=== PATIENT | male | born 1970 | race Caucasian/White ===

== ENCOUNTER 2018-02-25 02:13 | Inpatient (IN) ==
[2018-02-25] MEDS ORDERED: Sod Chloride 0.9% Inj 1,000 ML IV.SIG ONE (02:32)
[2018-02-25] MEDS ORDERED: Pantoprazole Inj 80 MG in Sodium Chlor 0.9% Inj 35 ML IV.SIG ONE (02:32)
[2018-02-25] MEDS ORDERED: Morphine Inj 4 MG/ML Vial IV.PUSH ONE (02:32)
--- NOTE | 2018-02-25 02:52 | ED ---
HPI General Chief complaint: Abdominal Pain Stated complaint: Nausea Time Seen by Provider: 02/25/18 02:31 Source: patient and EMS Mode of arrival: EMS Limitations: no limitations History of Present Illness HPI narrative: The patient is a 47 year old male who presents to the [facility] emergency department with a history of abdominal pain that began 2 hours prior to arrival. The patient reports that the pain is generalized and sharp in character. He reports that it has been constant since onset. He reports that he has had similar pain in the past intermittently for the last 2 years. He reports that in the past he has had it approximately 3-4 times to the severity. He reports that he has had evaluations done in the past and was diagnosed with acid reflux. He reports that he last had endoscopy 2-1/2 years ago. The patient reports that with this pain he had vomiting that consisted of blood 4-5 times prior to arrival. The patient reports having a past medical history significant for sarcoidosis, chronic back pain, acid reflux, and an abdominal aortic aneurysm diagnosed 4 months ago that was 4.5 cm at that time. He denies having any diarrhea. He reports that he has been moving his bowels regularly. He denies having any blood in his stool or black or tarry stools. On review of systems otherwise, the patient denies having any known fevers, worsening cough or congestion, neck pain,urinary symptoms, or neurologic symptoms. The patient reports that he has chronic shortness of breath related to sarcoidosis. The patient reports that with the abdominal pain he also began to have chest pain. He denies any history of coronary artery disease. Related Data Home Medications Medication Instructions Recorded Confirmed albuterol sulfate 2.5 mg INHALATION Q4H PRN 02/25/18 02/25/18 albuterol sulfate [Ventolin HFA] 2 puff INHALATION Q4H PRN 02/25/18 02/25/18 azathioprine 50 mg PO DAILY 02/25/18 02/25/18 benazepril 20 mg PO DAILY 02/25/18 02/25/18 diclofenac sodium 75 mg PO BID 02/25/18 02/25/18 duloxetine [Cymbalta] 20 mg PO BID 02/25/18 02/25/18 ezetimibe 10 mg PO DAILY 02/25/18 02/25/18 famotidine 40 mg PO DAILY 02/25/18 02/25/18 hydrochlorothiazide 25 mg PO DAILY 02/25/18 02/25/18 hydrocodone-acetaminophen [[place]] 1 tab PO Q4-6H PRN 02/25/18 02/25/18 hydroxychloroquine [Plaquenil] 200 mg PO DAILY 02/25/18 02/25/18 indacaterol-glycopyrrolate 1 cap INHALATION BID 02/25/18 02/25/18 [Utibron Neohaler] metoprolol succinate 12.5 mg PO BID 02/25/18 02/25/18 nortriptyline 25 mg PO DAILY 02/25/18 02/25/18 promethazine 25 mg PO Q12HR PRN 02/25/18 02/25/18 simvastatin 40 mg PO QPM 02/25/18 02/25/18 topiramate 100 mg PO BID 02/25/18 02/25/18 trazodone 50 mg PO DAILY 02/25/18 02/25/18 Allergies Allergy/AdvReac Type Severity Reaction Status Date / Time No Known Allergies Allergy Unverified 02/25/18 02:20 Review of Systems ROS: all other systems reviewed are negative PENDING SALE TO [facility] Medical History Medical History AAA (abdominal aortic aneurysm) (Acute) Sarcoidosis of lung (Acute) GERD (gastroesophageal reflux disease) (Acute) Hypertension (Acute) Social History Social History Substance History: No History of Abuse Smoking Status: Former smoker How Often Do You Have a Drink Containing Alcohol: Monthly or less Immunization History Tetanus Immunization: Unsure Exam Const General: cooperative, no acute distress and well developed Nutritional Appearance: well nourished Orientation: alert, awake and oriented x3 HENMT Head: normocephalic and atraumatic Nose: no nasal discharge and no epistaxis Mouth: moist mucous membranes Throat: posterior oropharynx normal and uvula midline Eyes Sclera: normal sclerae Pupils: PERRL Neck Neck: no meningeal signs, trachea midline and no JVD Resp Effort & Inspection: no use of accessory muscles Auscultation: clear to auscultation bilaterally Cardio Rate: regular rate Rhythm: regular rhythm Heart Sounds: no gallops, no murmurs and no rubs GI Inspection: distended and obesity Palpation: soft, no hepatosplenomegaly and tender in the epigastrum, in the RUQ and periumbilically; not in the LLQ, not in the RLQ, not in the LUQ, not at McBurney's point, not suprapubicly, Marrero's sign negative and with no rebound tenderness Auscultation: normal bowel sounds Back/Spine/Pelvis Back: no CVA tenderness Skin General: dry skin (warm) Neuro General: alert, awake, oriented x3 and other (Grossly nonfocal.) Speech: speech normal Motor: no movement abnormalities noted Extrem General: normal to inspection (No calf tenderness on palpation. 2+ pulses in all 4 extremities.), no clubbing, no cyanosis and no edema Psych Mood: congruent mood Affect: normal affect Judgment: judgment good Course Initial Documented Vital Signs Temperature 98.5 F 02/25/18 02:20 Pulse Rate 92 H 02/25/18 02:20 Respiratory Rate 02/25/18 02:20 Blood Pressure 132/64 02/25/18 02:20 Pulse Oximetry 98 02/25/18 02:20 Last Documented Vital Signs Temperature 98.5 F 02/25/18 02:30 Pulse Rate 92 H 02/25/18 02:20 Respiratory Rate 02/25/18 02:20 Blood Pressure 132/64 02/25/18 02:20 Pulse Oximetry 98 02/25/18 04:28 Medical Decision Making MDM Narrative Medical decision making narrative: During the course of the patient's emergency department visit, the patient's history, examination, and differential diagnosis were reviewed with the patient. The patient was placed on a cardiac rehabilitation program director with oximetry and frequent blood pressure monitoring. The patient had IV access obtained and blood work sent for analysis. Diagnostic evaluation was started regarding the patient's abdominal pain, chest pain, and hematemesis. The patient was initially provided normal saline 1 L IV fluid bolus, Protonix 80 mg IV followed by a Protonix drip. The patient was given Zofran for nausea. The patient was given morphine for pain. The patient's diagnostic evaluation is remarkable for a white count of 16.1, normal hemoglobin of 13.9, normal platelets 294 with a normal differential. PT is 10.3, PTT 21, chemistries remarkable for a GFR of 66, glucose 126, calcium 8.2. Cardiac enzymes within normal limits, lactic acid is 1.8. Lipase of the is within normal limits, urinalysis shows 9 RBCs, few mucus otherwise unremarkable. A chest x-ray reveals mild interstitial prominence of undetermined chronicity, this could be related to the patient's history of sarcoidosis. CT scan of the abdomen and pelvis shows a mid small bowel obstruction. Mildly distended gallbladder. The patient's results were discussed with the patient, including the plan of care. I explained that further testing and/ or monitoring is indicated based on the patient's history, examination, and/ or laboratory findings. Therefore, I recommended admission for additional evaluation. The patient expressed understanding and was agreeable with this plan. The patient was admitted to the hospital in guarded condition and sent to a bed under the care of the [facility] service. Medical Screen Exam Complete: Yes Emergency Medical Condition: Yes Differential Diagnosis Differential Diagnosis: Hemorrhagic esophagitis, versus peptic ulcer bleed, versus variceal bleed, versus Gilma-Zarate tear versus Boerhaave's Medical Records Medical records reviewed: Yes I reviewed the patient's medical records. Lab Data Lab results reviewed: Yes I reviewed the patient's lab results. Result diagrams: 02/25/18 02:35 02/25/18 02:35 Lab Results 02/25/18 02/25/18 02/25/18 Range/Units 02:35 02:35 02:35 WBC 16.1 H (4.0-11.0) th/mm3 RBC 4.41 L (4.50-5.90) mil/mm3 Hgb 13.9 (13.0-17.0) gm/dL Hct 40.2 (39.0-51.0) % MCV 91.3 (80.0-100.0) fL MCH 31.5 (27.0-34.0) pg MCHC 34.4 (32.0-36.0) % RDW 12.5 (11.6-17.2) % Plt Count 294 (150-450) th/mm3 MPV 9.5 (7.0-11.0) fL Neut % (Auto) 62.7 (16.0-70.0) % Lymph % (Auto) 25.1 (9.0-44.0) % [place] % (Auto) 7.1 (0.0-8.0) % Eos % (Auto) 3.8 (0.0-4.0) % Baso % (Auto) 1.3 (0.0-2.0) % Neut # (Auto) 10.1 H (1.8-7.7) th/mm3 Lymph # (Auto) 4.0 (1.0-4.8) th/mm3 [place] # (Auto) 1.1 H (0.0-0.9) th/mm3 Eos # (Auto) 0.6 H (0.0-0.4) th/mm3 Baso # (Auto) 0.2 (0.0-0.2) th/mm3 WBC Differential . Differential Comment Auto diff final PT 10.3 (9.8-11.6) sec INR 1.0 Ratio APTT 21.0 L (24.3-30.1) sec Sodium 144 (136-145) meq/L Potassium 3.5 (3.5-5.1) meq/L Chloride 107 (98-107) meq/L Carbon Dioxide 27.8 (21.0-32.0) meq/L Anion Gap 9 (5-15) meq/L BUN 14 (7-18) mg/dL Creatinine 1.18 (0.60-1.30) mg/dL Estimated GFR 66 L (>89) mL/min Random Glucose 126 H (74-106) mg/dL Lactic Acid (0.4-2.0) mmol/L Calcium 8.2 L (8.5-10.1) mg/dL Total Bilirubin 0.3 (0.2-1.0) mg/dL AST 20 (15-37) U/L ALT 34 (12-78) U/L Alkaline Phosphatase 86 (45-117) U/L Total Creatine Kinase 88 (39-308) U/L Troponin I Less than 0.02 L (0.02-0.05) ng/mL Total Protein 7.4 (6.4-8.2) g/dL Albumin 3.9 (3.4-5.0) g/dL Lipase 96 (73-393) U/L Urine Color (Yellw/Straw) Urine Clarity (Clear) Urine pH (5.0-8.5) Ur Specific [place] (1.002-1.035) Urine Protein (Neg-Trace) mg/dL Urine Glucose (UA) (Negative) mg/dL Urine Ketones (Negative) mg/dL Urine Occult Blood (Negative) Urine Nitrate (Negative) Urine Bilirubin (Negative) Urine Urobilinogen (Less than 2) mg/dL Ur Leukocyte Esterase (Negative) Urine RBC (0-3) /hpf Urine WBC (0-5) /hpf Urine Mucus (Occasional) /lpf Micro UA Comment Ur Microscopic Review Urine Culture Comments 02/25/18 02/25/18 Range/Units 02:35 02:45 WBC (4.0-11.0) th/mm3 RBC (4.50-5.90) mil/mm3 Hgb (13.0-17.0) gm/dL Hct (39.0-51.0) % MCV (80.0-100.0) fL MCH (27.0-34.0) pg MCHC (32.0-36.0) % RDW (11.6-17.2) % Plt Count (150-450) th/mm3 MPV (7.0-11.0) fL Neut % (Auto) (16.0-70.0) % Lymph % (Auto) (9.0-44.0) % Treg[place] % (Auto) (0.0-8.0) % Eos % (Auto) (0.0-4.0) % Baso % (Auto) (0.0-2.0) % Neut # (Auto) (1.8-7.7) th/mm3 Lymph # (Auto) (1.0-4.8) th/mm3 [place] # (Auto) (0.0-0.9) th/mm3 Eos # (Auto) (0.0-0.4) th/mm3 Baso # (Auto) (0.0-0.2) th/mm3 WBC Differential Differential Comment PT (9.8-11.6) sec INR Ratio APTT (24.3-30.1) sec Sodium (136-145) meq/L Potassium (3.5-5.1) meq/L Chloride (98-107) meq/L Carbon Dioxide (21.0-32.0) meq/L Anion Gap (5-15) meq/L BUN (7-18) mg/dL Creatinine (0.60-1.30) mg/dL Estimated GFR (>89) mL/min Random Glucose (74-106) mg/dL Lactic Acid 1.8 (0.4-2.0) mmol/L Calcium (8.5-10.1) mg/dL Total Bilirubin (0.2-1.0) mg/dL AST (15-37) U/L ALT (12-78) U/L Alkaline Phosphatase (45-117) U/L Total Creatine Kinase (39-308) U/L Troponin I (0.02-0.05) ng/mL Total Protein (6.4-8.2) g/dL Albumin (3.4-5.0) g/dL Lipase (73-393) U/L Urine Color Yellow (Yellw/Straw) Urine Clarity Clear (Clear) Urine pH 7.0 (5.0-8.5) Ur Specific [place] 1.017 (1.002-1.035) Urine Protein Negative (Neg-Trace) mg/dL Urine Glucose (UA) Negative (Negative) mg/dL Urine Ketones Negative (Negative) mg/dL Urine Occult Blood Negative (Negative) Urine Nitrate Negative (Negative) Urine Bilirubin Negative (Negative) Urine Urobilinogen Less than 2 (Less than 2) mg/dL Ur Leukocyte Esterase Negative (Negative) Urine RBC 9 H (0-3) /hpf Urine WBC 1 (0-5) /hpf Urine Mucus Few H (Occasional) /lpf Micro UA Comment Culture not ind Ur Microscopic Review Not Reportable Urine Culture Comments Culture not ind Imaging Data Radiologist's impression: Abdomen/Pelvis CT 02/25/18 02:32 CONCLUSION: Mid small bowel obstruction. Chest X-Ray 02/25/18 02:32 CONCLUSION: Mild interstitial prominence of undetermined chronicity ECG Data Attestation: I personally reviewed and interpreted this ECG as follows: Interpretation: The patient had an EKG done on arrival that shows a sinus rhythm of 93, QRS duration is 93 ms, QTC [address] segment elevation. T waves are inverted in V1. Discharge Plan Discharge Disposition Patient Disposition: 30 Still Patient Discharge Details Diagnosis: GI bleed, SBO (small bowel obstruction) Physicians Team ED Provider: Minnie De La Garza Primary Care Provider: UNKNOWN, Attending Provider: Odilon Askew Other Providers: Antoni Euceda Discharge Interventions Interventions: ED Discharge Assessment Last Done: 02/25/18 05:48 Vital Signs Last Done: 02/25/18 02:30 Status ED Status: Admitted Observation Patient
[2018-02-25 02:55] LABS: Baso # (Auto) 0.2 th/mm3 (0.0-0.2); Baso % (Auto) 1.3 % (0.0-2.0); Eos # (Auto) 0.6 th/mm3 (0.0-0.4); Eos % (Auto) 3.8 % (0.0-4.0); Hematocrit 40.2 % (39.0-51.0); Hemoglobin 13.9 gm/dL (13.0-17.0); Lymph % (Auto) 25.1 % (9.0-44.0); Mean Corpuscular HGB Conc 34.4 % (32.0-36.0); Mean Corpuscular Hemoglobin 31.5 pg (27.0-34.0); Mean Corpuscular Volume 91.3 fL (80.0-100.0); Mean Platelet Volume 9.5 fL (7.0-11.0); Mono # (Auto) 1.1 th/mm3 (0.0-0.9); Mono % (Auto) 7.1 % (0.0-8.0); Neut # (Auto) 10.1 th/mm3 (1.8-7.7); Neut % (Auto) 62.7 % (16.0-70.0); Platelet Count 294 th/mm3 (150-450); Red Blood Count 4.41 mil/mm3 (4.50-5.90); Red Cell Distribution Width 12.5 % (11.6-17.2); White Blood Count 16.1 th/mm3 (4.0-11.0)
[2018-02-25 02:57] LABS: Bilirubin,Urine Negative (Negative); Clarity,Urine Clear (Clear); Color,Urine Yellow (Yellw/Straw); Glucose,Urine (UA) Negative (Negative); Leukocyte Esterase,Urine Negative (Negative); Mucus,Urine Few /lpf (Occasional); Nitrite,Urine Negative (Negative); Specific Gravity,Urine 1.017 (1.002-1.035)
[2018-02-25 03:05] LABS: Alanine Aminotransferase 34 U/L (12-78); Albumin 3.9 g/dL (3.4-5.0); Anion Gap 9 meq/L (5-15); Aspartate Aminotransferase 20 U/L (15-37); Blood Urea Nitrogen 14 mg/dL (7-18); Calcium 8.2 mg/dL (8.5-10.1); Carbon Dioxide 27.8 meq/L (21.0-32.0); Chloride 107 meq/L (98-107); Glomerular Filtration Rate 66 mL/min (>89); Glucose,Random 126 mg/dL (74-106); Lipase 96 U/L (73-393); Potassium 3.5 meq/L (3.5-5.1); Sodium 144 meq/L (136-145)
[2018-02-25 03:09] LABS: Alkaline Phosphatase 86 U/L (45-117); Total Protein 7.4 g/dL (6.4-8.2)
[2018-02-25 03:12] LABS: Prothrombin Time 10.3 sec (9.8-11.6)
[2018-02-25 03:37] LABS: Creatine Kinase 88 U/L (39-308)
[2018-02-25] MEDS: Pantoprazole Inj 80 MG in Sodium Chlor 0.9% Inj 100 ML IV.CONT SCH ×2 (05:24→21:14)
[2018-02-25 07:34] LABS: Hematocrit 35.8 % (39.0-51.0); Hemoglobin 12.3 gm/dL (13.0-17.0)
[2018-02-25] MEDS ORDERED: Succinylcholine Inj 100 MG/5 ML Syringe IV.PUSH ONE (14:05)
[2018-02-25] MEDS ORDERED: Lidocaine PF 1% Inj 5 ML Syringe OTHER ONE (14:05)
[2018-02-25] MEDS ORDERED: Diatrizoate Meglum/Diatrizoate Sod Liq 120 ML Bottle (for RAD diag) PO ONE (17:08)
[2018-02-25 19:42] LABS: Hematocrit 37.9 % (39.0-51.0); Hemoglobin 12.9 gm/dL (13.0-17.0)
--- NOTE | 2018-02-25 20:25 | ECG ---
Date Performed: 02/25/2018 Time Performed: 02:24:17 PTAGE: 47 years EKG: Sinus rhythm NORMAL ECG NO PREVIOUS TRACING DOCTOR: Yifan Horton Interpretating Date/Time 02/25/2018 20:24:33
[2018-02-25] MEDS ORDERED: GLYCOPYRROLATE INHALATION SCH (21:00)
[2018-02-25] MEDS ORDERED: INDACATEROL INHALATION SCH (21:00)
[2018-02-25] MEDS: Topiramate 100 MG Tablet PO SCH (21:13)
[2018-02-26 02:05] LABS: Baso # (Auto) 0.1 th/mm3 (0.0-0.2); Baso % (Auto) 1.1 % (0.0-2.0); Eos # (Auto) 0.6 th/mm3 (0.0-0.4); Eos % (Auto) 6.7 % (0.0-4.0); Hematocrit 34.9 % (39.0-51.0); Hemoglobin 12.1 gm/dL (13.0-17.0); Lymph # (Auto) 2.2 th/mm3 (1.0-4.8); Lymph % (Auto) 25.5 % (9.0-44.0); Mean Corpuscular HGB Conc 34.5 % (32.0-36.0); Mean Corpuscular Hemoglobin 31.6 pg (27.0-34.0); Mean Corpuscular Volume 91.5 fL (80.0-100.0); Mean Platelet Volume 8.8 fL (7.0-11.0); Mono # (Auto) 0.9 th/mm3 (0.0-0.9); Mono % (Auto) 10.1 % (0.0-8.0); Neut # (Auto) 4.9 th/mm3 (1.8-7.7); Neut % (Auto) 56.6 % (16.0-70.0); Platelet Count 223 th/mm3 (150-450); Red Blood Count 3.82 mil/mm3 (4.50-5.90); Red Cell Distribution Width 12.6 % (11.6-17.2); White Blood Count 8.7 th/mm3 (4.0-11.0)
[2018-02-26 02:25] LABS: Alanine Aminotransferase 27 U/L (12-78); Albumin 3.5 g/dL (3.4-5.0); Anion Gap 8 meq/L (5-15); Aspartate Aminotransferase 18 U/L (15-37); Blood Urea Nitrogen 13 mg/dL (7-18); Carbon Dioxide 27.3 meq/L (21.0-32.0); Chloride 109 meq/L (98-107); Glomerular Filtration Rate 89 mL/min (>89); Glucose,Random 91 mg/dL (74-106); Potassium 3.3 meq/L (3.5-5.1); Sodium 144 meq/L (136-145)
[2018-02-26 02:27] LABS: Alkaline Phosphatase 74 U/L (45-117); Total Protein 6.4 g/dL (6.4-8.2)
[2018-02-26] MEDS: Pantoprazole Inj 80 MG in Sodium Chlor 0.9% Inj 100 ML IV.CONT SCH (07:26)
[2018-02-26] MEDS: Ezetimibe 10 MG Tablet PO SCH (09:43)
[2018-02-26] MEDS: azaTHIOprine 50 MG Tablet PO SCH (09:43)
[2018-02-26] MEDS: Nortriptyline 25 MG Capsule PO SCH (09:43)
[2018-02-26] MEDS: hydroCHLOROthiazide 25 MG Tablet PO SCH (09:44)
[2018-02-26] MEDS ORDERED: Acetaminophen 325 MG Tablet PO PRN (09:44)
[2018-02-26] MEDS: traZODone 50 MG Tablet PO SCH (09:45)
[2018-02-26] MEDS: Hydroxychloroquine 200 MG Tablet PO SCH (09:46)
[2018-02-26] MEDS: Topiramate 100 MG Tablet PO SCH ×2 (09:46→21:14)
[2018-02-26] MEDS ORDERED: Morphine Sulfate Inj 2 MG/ML Vial IV.PUSH ONE (14:21)
[2018-02-27] MEDS: traZODone 50 MG Tablet PO SCH (09:22)
[2018-02-27] MEDS: azaTHIOprine 50 MG Tablet PO SCH (09:22)
[2018-02-27] MEDS: Nortriptyline 25 MG Capsule PO SCH (09:23)
[2018-02-27] MEDS: Ezetimibe 10 MG Tablet PO SCH (09:25)
[2018-02-27] MEDS: Topiramate 100 MG Tablet PO SCH (09:25)
[2018-02-27] MEDS: Hydroxychloroquine 200 MG Tablet PO SCH (09:26)
[2018-02-27] MEDS: hydroCHLOROthiazide 25 MG Tablet PO SCH (09:26)
[2018-02-27] MEDS ORDERED: Baclofen 10 MG Tablet PO ONE (11:00)
== END 2018-02-27 11:54 | disposition home or self-care (01) ==
LOC: NEPC 02:13 → INTOOBSV 04:27 → NEDA 04:27 → NEPGCP 05:45
PROVIDERS: ADMIT Family Medicine; ATTEND Family Medicine
PROC: PANENDO (2018-02-25 14:05)